=== PATIENT | female | born 2000 | race Caucasian/White ===

== ENCOUNTER 2019-02-04 07:14 | Inpatient (IN) | payer BC, MEDICAID ==
[2019-02-04] VITALS (41 sets, daily range): BP systolic 84–127; BP diastolic 51–80; PULSE 81–142; TEMP 97.3–99
[~2019-02-04] VITALS: Ht 157.5 cm; Wt 74.5 kg
--- NOTE | 2019-02-04 07:20 | NUR ---
Patient arrives ambulatory with FOB and family for scheduled induction of labor. Patient denies contractions, ROM or vaginal bleeding. Reports normal movement. Patient changes into gown, EFM explained and placed. VSS. Patient updated on plan of care, denies questions. 0730- IV started in LFA, labs obtained. LR infusing per protocol. Consents explained and signed. Denies questions. Assessment completed. 0800- Deirdre infusing per order. Reactive FHR strip obtained. Pitocin administration reviewed, patient denies questions. Pitocin started at 2 mU per protocol and order. 0805- Patient reports feeling nauseated and dizzy. BP noted hypotensive, patient repositioned LL. Reports improviement of symptoms with interventions. 0815- Dr. Martinez at bedside. Reviewed FHR strip. Discussing AROM. Patient denies questions. 0820- AROM by Dr. Martinez for small amount of clear fluid. SVE /-1. Pericare given and patient repositioned WL. Orders to continue induction.
[2019-02-04] MEDS ORDERED: PRENATAL (07:42)
[2019-02-04] MEDS ORDERED: BETAMETHASONE D15 G1 TP (07:43)
[2019-02-04 08:19] LABS: RED BLOOD COUNT 4.46 M/mm3 (4.10-5.30)
[2019-02-04 08:20] LABS: BASO % 0.3 % (0.0-2.0); EOS # 0.2 (0.0-0.7); EOS % 1.5 % (0-4.0); GRAN # 6.4 (1.4-6.5); GRAN % 61.9 % (42.2-75.2); HEMATOCRIT 37.2 % (35.0-45.0); HEMOGLOBIN 12.1 g/dl (12.0-15.0); LYMPH % 28.5 % (20.0-51.0); MEAN CELL VOLUME 83 fl (80.0-95.0); MEAN CORPUSCULAR HEMOGLOBIN 27 pg (26.0-32.0); MEAN CORPUSCULAR HGB CONC 33 g/dl (33.0-37.0); MEAN PLATELET VOLUME 9.1 fl (7.4-10.4); MONO # 0.7 (0.1-0.6); MONO % 7.1 % (1.7-9.3); PLATELET COUNT 176 K/mm3 (130-400); REDCELL DISTRIBUTION WIDTH-CV 13.1 % (11.5-14.5)
--- NOTE | 2019-02-04 11:10 | NUR ---
Patient encouraged to sit on birthing ball or stand at bedside. Patient sits on edge of bed after bathroom. States contractions are becoming more intense.
--- NOTE | 2019-02-04 11:55 | NUR ---
Dr. Martinez at bedside. SVE per provider 1. Patient requesting epidural. LR bolus infusing and Graham [facility] [employer] SKILLS EDUCATOR notified. Patient breathing through contractions.
--- NOTE | 2019-02-04 15:20 | NUR ---
1520- Patient reports increased pressure. SVE 10/+2. Pericare given. Beard catheter removed prior to pushing. Dr. Martinez notified of patient progress, orders to begin pushing. 1530- Patient begins pushing with contractions with RN at bedside. Moves vertex well. Dr. Martinez called and requested for impending delivery. Physician in transit. 1535- Dr. Martinez at bedside. Patient pushes with contractions. Nursery RN called to bedside and patient assisted to footplates. Periprep completed. 1542- of viable male infant attended by Dr. Martinez. Infant to mother's abdomen, care of infant to Inés Galeas RN. Apgars 8/9/9. 1545- Spontaneous delivery of placenta. Pitocin bolus started at 333 ml/hr/protocol. Second degree perineal laceration repaired. Patient tolerates well. Fundal massage by RN, firm and at umbilicus. Vaginal bleeding WNL. Ice pack applied to perineum, patient updated on plan of care and safety.
[2019-02-04] MEDS ORDERED: MOTRIN 800800 MG/TAB PO (16:02)
[2019-02-05 04:45] VITALS: BP 98/56; PULSE 108; TEMP 98.3
[2019-02-05 07:00] VITALS: BP 97/55; PULSE 102; TEMP 98
[2019-02-05 10:55] VITALS: BP 88/59; PULSE 111; TEMP 98.6
[2019-02-05 16:15] VITALS: BP 100/59; PULSE 102; TEMP 98.8
[2019-02-05 21:15] VITALS: BP 97/57; PULSE 111; TEMP 98.8
[2019-02-06 08:35] VITALS: BP 114/62; PULSE 76; TEMP 97.8
== END 2019-02-06 11:30 | disposition home or self-care (01) | DRG 807 ==
LOC: LDR 07:14 → OB 07:16 → LDR 07:16 → OB 18:00
PROVIDERS: ADMIT Obstetrics & Gynecology
PROC: 3E033VJ Introduction of Other Hormone into Peripheral Vein, Percutaneous Approach (ICD-10-PCS; principal; 2019-02-04)
PROC: 10E0XZZ Delivery of Products of Conception, External Approach (ICD-10-PCS; 2019-02-04)
PROC: 0KQM0ZZ Repair Perineum Muscle, Open Approach (ICD-10-PCS; 2019-02-04)
PROC: 10907ZC Drainage of Amniotic Fluid, Therapeutic from Products of Conception, Via Natural or Artificial Opening (ICD-10-PCS; 2019-02-04)
DX: O99.824 Streptococcus B carrier state complicating childbirth (principal); Z37.0 Single live birth; O26.843 Uterine size-date discrepancy, third trimester; L40.9 Psoriasis, unspecified; O99.72 Diseases of the skin and subcutaneous tissue complicating childbirth; Z3A.40 40 weeks gestation of pregnancy; O70.1 Second degree perineal laceration during delivery
CPT/HCPCS: J2540; J2590; J7120

== ENCOUNTER 2020-12-17 13:08 | Inpatient (IN) | payer BC, MEDICAID ==
[~2020-12-17] VITALS: Ht 157.5 cm; Wt 80.5 kg
[2020-12-17] VITALS (23 sets, daily range): BP systolic 102–150; BP diastolic 52–84; PULSE 85–117; TEMP 98.1–98.6
[~2020-12-17 13:08] MED LIST: BETAMETHASONE D15 G1 TP; MOTRIN 800800 MG/TAB PO; PRENATAL
--- NOTE | 2020-12-17 13:15 | NUR ---
Presents to labor and delivery floor. States thinks my water broke. Assessment done, questions offered and answered. Amnio test done, positive test. See physicians notes please.
--- NOTE | 2020-12-17 14:30 | NUR ---
Rests in bed, alert. Denies any discomfort at this time. Report given to Briseida vazquez
[2020-12-17 14:37] LABS: BASO % 0.2 % (0.0-2.0); EOS # 0.1 (0.0-0.7); EOS % 0.6 % (0-4.0); GRAN # 7.7 (1.4-6.5); GRAN % 71.7 % (42.2-75.2); LYMPH # 2.1 (1.2-3.4); LYMPH % 19.9 % (20.0-51.0); MEAN CELL VOLUME 83 fl (80.0-100.0); MEAN CORPUSCULAR HEMOGLOBIN 28 pg (27.0-31.0); MEAN CORPUSCULAR HGB CONC 34 g/dl (33.0-37.0); MEAN PLATELET VOLUME 9.4 fl (7.4-10.4); MONO # 0.8 (0.1-0.6); MONO % 7.2 % (1.7-9.3); PLATELET COUNT 157 K/mm3 (130-400); RED BLOOD COUNT 4.25 M/mm3 (4.10-5.30); REDCELL DISTRIBUTION WIDTH-CV 13.5 % (11.5-14.5)
[2020-12-17 14:39] LABS: HEMATOCRIT 35.4 % (37.0-47.0)
--- NOTE | 2020-12-17 15:01 | NUR ---
THIS RN TAKES OVER CARE AROUND 1430. PT. STABLE. NO QUESTIONS/CONCERNS AT THIS TIME. PITOCIN, LR, PEN G STARTED AT THIS TIME
--- NOTE | 2020-12-17 16:42 | NUR ---
FHT STRIP: 1615: DIFFICULTY DETERMINING BASELINE. MODERATE VARIABILITY NOTED
--- NOTE | 2020-12-17 17:38 | NUR ---
EPIDURAL PLACEMENT: 1651: MARIOLA AGARWAL CALLED FOR EPIDURAL 1707: ANESTHESIA AT BS 1709: TO COMPLETED PT. SITTING UP ON SIDE OF BED. 1713: SINGLE SHOT PT. HAS NO COMPLAINTS 1719: PT. LAID SUPINE NO COMPLAINTS. WILL CONTINUE TO MONITOR PT.
--- NOTE | 2020-12-17 18:25 | NUR ---
182 C/O SOME PUSHING SENSATION. SVE 9-10/-1. DR AVITIA NOTIFIED AND WILL BE HERE SOON. PT READIED FOR DELIVERY. 184 COMPLETE AND PUSHED X1. WILL WAIT FOR DR AVITIA 184 DR AVITIA HERE AND ENCOURAGED TO PUSH WITH CONTRACTIONS 184 DEL VIABLE FEMALE OVER 1ST DEGREE LAC WITH 8/9/9 APGARS. IV CONTS TO INFUSE.
--- NOTE | 2020-12-17 18:30 | NUR ---
REPORT GIVEN TO FRANCHESKA HALL
--- NOTE | 2020-12-17 21:00 | NUR ---
2100 IV TO INT. EPID CATH DCD. UNABLE TO AMB TO BR. PERICARE DONE IN BED. SM AMOUNT ARABELLA NOTED. TO W/C AND TO ROOM 208. JOSH WELL.
[2020-12-17] MEDS ORDERED: MOTRIN 800800 MG/TAB PO (21:50)
[2020-12-18 03:25] VITALS: BP 113/71; PULSE 93; TEMP 97.8
[2020-12-18 08:48] VITALS: BP 104/66; PULSE 96; TEMP 97.8
--- NOTE | 2020-12-18 09:58 | NUR ---
Initial visit attempt; Nurse with patient, Human Resources Admin left card of congratulations for the of their daughter and information regarding the availability of spiritual care at our hospital.
[2020-12-18 12:13] VITALS: BP 108/65; PULSE 97
[2020-12-18 16:24] VITALS: BP 108/52; PULSE 90
[2020-12-18 19:40] VITALS: BP 107/60; PULSE 104; TEMP 98.6
== END 2020-12-18 21:15 | disposition home or self-care (01) | DRG 807 ==
LOC: LDRO 13:08 → LDR 13:15 → LDRO 13:55 → OB 13:55
PROVIDERS: Obstetrics & Gynecology; ADMIT Obstetrics & Gynecology
PROC: 10E0XZZ Delivery of Products of Conception, External Approach (ICD-10-PCS; principal; 2020-12-17)
PROC: 0HQ9XZZ Repair Perineum Skin, External Approach (ICD-10-PCS; 2020-12-17)
DX: O99.824 Streptococcus B carrier state complicating childbirth (principal); Z37.0 Single live birth; O70.0 First degree perineal laceration during delivery; Z3A.39 39 weeks gestation of pregnancy
CPT/HCPCS: J2540; J2590; J7120

== ENCOUNTER 2022-02-07 23:45 | Inpatient (IN) | payer BC, MEDICAID ==
[2022-02-08] VITALS (14 sets, daily range): BP systolic 87–126; BP diastolic 47–78; PULSE 89–120; TEMP 97.8–98.5
[2022-02-08 01:29] LABS: BASO % 0.2 % (0.0-2.0); EOS % 0.2 % (0.0-4.0); GRAN # 11.1 K/mm3 (1.4-6.5); GRAN % 75.8 % (42.2-75.2); HEMOGLOBIN 11.7 g/dl (12.5-16.0); LYMPH # 2.6 K/mm3 (1.2-3.4); LYMPH % 17.5 % (20.0-51.0); MEAN CELL VOLUME 79 fl (80.0-100.0); MEAN CORPUSCULAR HEMOGLOBIN 27 pg (27-31); MEAN CORPUSCULAR HGB CONC 34 g/dl (33.0-37.0); MEAN PLATELET VOLUME 9.1 fl (7.4-10.4); MONO # 0.9 K/mm3 (0.1-0.6); PLATELET COUNT 154 K/mm3 (130-400); RED BLOOD COUNT 4.36 M/mm3 (4.10-5.30); REDCELL DISTRIBUTION WIDTH-CV 14.4 % (11.5-14.5)
--- NOTE | 2022-02-08 01:30 | NUR ---
SVE /-[address] ROLES HERE IN HOUSE NOTIFIED OF PT'S PROGRESS.
[2022-02-08 01:33] LABS: HEMATOCRIT 34.4 % (37.0-47.0)
--- NOTE | 2022-02-08 01:40 | NUR ---
DR ROLES HERE, SVE COMPLETE, AROM FLUID CLEAR.
--- NOTE | 2022-02-08 01:50 | NUR ---
ROLES HERE IN ROOM, PT SET UP FOR PUSHING WITH FOOT REST. PERINEUM PREPPED WITH HIBICLEANSE AND WATER VIA DR MACE. PT PUSHING WITH UC'S. 0206 VAG DELIVERY MALE INFANT. BABY PLACED ON MOMS ABD, DRIED AND STIMULATED. CORD CLAMPED AFTER IT STOPPED PULSING. THEN CUT BY FOB. BABY PLACED ON MOMS CHEST FOR SKIN TO SKIN. PT HAS 2ND DEGREEE LAC WITH REPAIR.
--- NOTE | 2022-02-08 02:11 | NUR ---
PLACENTA DELIVERED INTACT. PITOCIN STARTED PER PROTOCOL VIA PUMP.
--- NOTE | 2022-02-08 04:35 | NUR ---
PT UP AMB TO BR, VOIDED 450 CC. PERICARE DONE. PADS, PANTIES AND GOWN CHANGED. PT STOOD UP TO WASH HER HANDS AND STATED SHE IS GETTING DIZZY. IMMEDIATELY SAT PT IN THE WHEEL CHAIR. COOL CLOTH TO NECK AND FOREHEAD. BP 77/44. PULSE 125. THEN 76/42. PULSE 122. DR MACE AT THE DESK WAS NOTIFIED. ORDERS FOR IV FLUID BOLUS AND PT MAY BE MOVED TO THE PP ROOM WITH THE IV FLUIDS. PT WAS TRANSFERED TO PP ROOM 214 VIA WHEELCHAIR AND AMB TO THE BED WITHOUT INCIDENT. EXPLAINED TO HER NOT TO GET UP WITHOUT CALLING THE NURSE. IV FLUID LR BOLUS STARTED AND FLOWING VIA GRAVITY. PT STATES SHE IS FEELING BETTER AFTER LYING DOWN. SHE IS DRINKING SPRITE AND EATING CRACKERS. BP 98/69 PULSE 101, RESP 16. FUNDUS IS FIRM AND AT THE UMBILICUS. LOCHIA IS SCANT, NO CLOTS NOTED. WILL DO FREQUENT BP'S. PT VERBALIZED UNDERSTANDING.
--- NOTE | 2022-02-08 05:55 | NUR ---
PT'S IV FLUIDS COMPLETE. SALINE LOCKED AND FLUSHED. BP 98/66. PULSE 90. RESP 18. PT STATES SHE FEELS FINE AND NEEDS TO USE THE BATHROOM. SHE STATES SHE FEELS VERY TIRED AND SLEEPY BUT DOES NOT FEEL DIZZY OR LIGHTHEADED NOW. PT SLOWING ASSISTED TO BR. SHE VOIDED 475 CC. PERICARE DONE. LOCHIA IS LIGHT. PAD CHANGED. PT AMB BACK TO BED WITHOUT INCIDENT. PT STATES SHE JUST WANTS TO GET A FEW HOURS SLEEP AND SHE WILL BE FINE, SHE JUST FEELS EXHAUSTED.
[2022-02-08] MEDS ORDERED: MOTRIN 800800 MG/TAB PO (08:30)
--- NOTE | 2022-02-08 09:29 | NUR ---
Initial visit; Parents thanked Engineer Sergeant for offering congratulations and God's blessings for the of their son. Engineer Sergeant thanked family for choosing [facility].
[2022-02-08 12:21] LABS: HEMATOCRIT 27.7 % (37.0-47.0); HEMOGLOBIN 9.2 g/dl (12.5-16.0)
--- NOTE | 2022-02-08 15:20 | NUR ---
REPORT GIVEN TO FRANCHESKA COPPOLA.
[2022-02-09 03:55] VITALS: BP 112/69; PULSE 89; TEMP 97.9
[2022-02-09 08:45] VITALS: BP 100/60; PULSE 104; TEMP 97.6
--- NOTE | 2022-02-09 14:30 | NUR ---
1430 - DISCHARGE INSTRUCTIONED REVIEWED WITH PATIENT AND SPOUSE. PATIENT AWARE OF FOLLOW UP APPOINTMENT WITH [facility] AND THE NEED TO MAKE A APPOINTMENT WITH PEDS. HOLLIONS ANSWERED. 1450 - PATIENT AMBULATORY OFF UNIT WITH SPOUSE AND ACCOMPANIED BY FRANCHESKA ISLAS.
== END 2022-02-09 14:50 | disposition home or self-care (01) | DRG 807 ==
LOC: LDRO 23:45 → OB 02-08 00:36 → LDR 02-08 00:36 → OB 02-08 04:45
PROVIDERS: ADMIT Obstetrics & Gynecology
PROC: 10E0XZZ Delivery of Products of Conception, External Approach (ICD-10-PCS; principal; 2022-02-08)
DX: O76 Abnormality in fetal heart rate and rhythm complicating labor and delivery (principal); Z37.0 Single live birth; O99.344 Other mental disorders complicating childbirth; F41.9 Anxiety disorder, unspecified; Z3A.40 40 weeks gestation of pregnancy; O48.0 Post-term pregnancy; O69.81X0 Labor and delivery complicated by cord around neck, without compression, not applicable or unspecified; O70.1 Second degree perineal laceration during delivery; O90.81 Anemia of the puerperium; D64.9 Anemia, unspecified; Z53.29 Procedure and treatment not carried out because of patient's decision for other reasons
CPT/HCPCS: J2405; J2540; J7120